=== PATIENT | female | born 1960 | race African-American/Black ===

== ENCOUNTER 2018-04-15 19:37 | Emergency (ER) | payer OTHER ==
[~2018-04-15] VITALS: Ht 160 cm; Wt 140.6 kg
[~2018-04-15 19:37] MED LIST: ALEVE220 M1 PO
[2018-04-15] MEDS ORDERED: MOBIC15 MG PO (20:53)
[2018-04-15] MEDS ORDERED: FLEXERIL PO (20:53)
[2018-04-15 21:10] VITALS: BP 188/110
== END 2018-04-15 21:14 | disposition home or self-care (01) ==
LOC: ER 19:37
DX: S70.12XA Contusion of left thigh, initial encounter (principal); Z88.6 Allergy status to analgesic agent; Z88.0 Allergy status to penicillin; V89.2XXA Person injured in unspecified motor-vehicle accident, traffic, initial encounter; Y92.89 Other specified places as the place of occurrence of the external cause; Y93.89 Activity, other specified; Y99.8 Other external cause status

== ENCOUNTER → 2019-12-09 | Outpatient (CLI) | payer OTHER ==
[~2019-12-09] MED LIST changes: +FLEXERIL PO; +MOBIC15 MG PO
== END ==
LOC: HYPER 08:30
PROVIDERS: ATTEND Specialist
DX: L24.89 Irritant contact dermatitis due to other agents (principal); B37.2 Candidiasis of skin and nail; N89.8 Other specified noninflammatory disorders of vagina; E66.01 Morbid (severe) obesity due to excess calories; M16.10 Unilateral primary osteoarthritis, unspecified hip; M16.12 Unilateral primary osteoarthritis, left hip; Z68.42 Body mass index [BMI] 45.0-49.9, adult

== ENCOUNTER → 2020-01-13 | Outpatient (CLI) | payer OTHER | LOC: HYPER 09:06 | PROVIDERS: ATTEND Specialist | DX: L24.89 Irritant contact dermatitis due to other agents (principal); N89.8 Other specified noninflammatory disorders of vagina; B37.2 Candidiasis of skin and nail; E66.01 Morbid (severe) obesity due to excess calories; M16.12 Unilateral primary osteoarthritis, left hip; Z68.42 Body mass index [BMI] 45.0-49.9, adult ==